=== PATIENT | female | born 1935 | race Caucasian/White ===

== ENCOUNTER 2019-10-26 14:11 | Outpatient (RCR) | payer MEDICARE, SELFPAY | END 2019-10-26 23:59 | disposition home or self-care (01) | LOC: WOUND 14:11 | PROVIDERS: Visit Provider Emergency Medicine | DX: E11.621 Type 2 diabetes mellitus with foot ulcer (principal); L97.522 Non-pressure chronic ulcer of other part of left foot with fat layer exposed | CPT/HCPCS: 11042; 87070; 87077; 87176; 87186; 87205; 99203; G0463; L2999; L3260 ==

== ENCOUNTER 2019-10-27 10:32 | Outpatient (CLI) | payer MEDICARE, SELFPAY ==
--- NOTE | 2019-10-27 10:45 | XR_ITS ---
WS: [id number] FOOT LEFT TECHNIQUE: 3 views of the left foot CLINICAL INFORMATION: PAIN REDNESS, NONHEALING ULCER COMPARISON: None. FINDINGS: Osteopenia. Soft tissue edema with slight ulceration overlying the calcaneus. No acute fractures. Deg enerative arthritis with IP joint space narrowing. No evidence of osteomyelitis. XR/XR foot LT min 3V* [id number] IMPRESSION: No evidence of osteomyelitis
== END 2019-10-27 10:33 | disposition home or self-care (01) ==
PROVIDERS: PCP Registered Nurse; Visit Provider Emergency Medicine
DX: M79.672 Pain in left foot (principal); L53.9 Erythematous condition, unspecified; L97.522 Non-pressure chronic ulcer of other part of left foot with fat layer exposed
CPT/HCPCS: 73630

== ENCOUNTER 2019-11-09 13:59 | Outpatient (CLI) | payer MEDICARE, SELFPAY | END 2019-11-09 14:00 | disposition home or self-care (01) | LOC: WOUND 14:00 | PROVIDERS: PCP Registered Nurse; Visit Provider Emergency Medicine | DX: E11.621 Type 2 diabetes mellitus with foot ulcer (principal); L97.522 Non-pressure chronic ulcer of other part of left foot with fat layer exposed | CPT/HCPCS: 11042 ==

== ENCOUNTER 2019-11-16 09:39 | Outpatient (CLI) | payer MEDICARE, SELFPAY ==
--- NOTE | 2019-11-16 10:59 | USCV_ITS ---
BRADLEY CHANTALE Age: 84 Gender: F : [id number] Exam Date: 11/16/2019 11:10 Ordering Phys: Vianca Samson Technologist: Nagi Zapien Exam Location: [facility] [place]: HISTORY: Patient has history of varicose veins. PROCEDURES: Bilateral duplex Venous Insufficiency study of the Deep and Superficial systems was carried out according to normal protocol with the patient in supine positon for deep system and dependent position for the superficial system. FINDINGS: There is no evidence of bilateral deep vein thrombosis. Reflux is demonstrated in the deep venous system at the level of the LEFT femoral vein and popliteal vein. There is no evidence of bilateral deep vein thrombosis. No evidence of superficial thrombosis in the bilateral saphenous system. No venous reflux noted in the bilateral greater saphenous vein. No venous reflux noted in the bilateral small saphenous vein. CONCLUSIONS No evidence of DVT in the above-mentioned identifiable veins. Significant venous reflux of greater than 1000 ms were noted at the left femoral and popliteal vein segments. No significant venous reflux were noted in superficial veins. Venous dimensions and the depth from the surface are as mentioned above The greater saphenous veins were found to be of normal caliber and at a depth of more than 1 cm from the surface, bilaterally Dr Nandini Leiva MD [facility] (Electronically Signed) Final Date: 17 November 2019 08:57 S
== END 2019-11-16 09:40 | disposition home or self-care (01) ==
LOC: WOUND 09:40
PROVIDERS: PCP Registered Nurse; Visit Provider Nurse Practitioner Family
DX: E11.621 Type 2 diabetes mellitus with foot ulcer (principal); L97.522 Non-pressure chronic ulcer of other part of left foot with fat layer exposed
CPT/HCPCS: 11042; 93970

== ENCOUNTER 2019-11-23 10:07 | Outpatient (CLI) | payer MEDICARE, SELFPAY | END 2019-11-23 10:08 | disposition home or self-care (01) | LOC: WOUND 10:08 | PROVIDERS: PCP Registered Nurse; Visit Provider Nurse Practitioner Family | DX: Z09 Encounter for follow-up examination after completed treatment for conditions other than malignant neoplasm (principal) | CPT/HCPCS: 99212 ==